=== PATIENT | female | born 1990 | race Caucasian/White ===

== ENCOUNTER → 2016-06-11 | Outpatient (CLI) | payer OTHER ==
[~2016-06-11] MED LIST: AMIT10TA6 PO; CEPH500C2 PO; LORA-741 PO; RIZA10TA18 SL; SERT-234 PO; SINCALIDE IV ONE; SODIUM CHLORIDE 0.9% IV ONE; ZNTT/150 PO
--- NOTE | 2016-06-11 13:01 | DIAGNOSTIC IMAGING REPORT ---
NUCLEAR MEDICINE HEPATOBILIARY SCAN WITH EJECTION FRACTION HISTORY: Pain. Nausea. ABD PAIN RUQ COMPARISON: None. TECHNIQUE: Immediately following the intravenous administration of 5.6 mCi Tc-99m Choletec, dynamic anterior abdominal imaging pre/post 2.68 mcg of Kinevac was performed. FINDINGS: Uniform hepatic tracer accumulation is shown. Prompt intrahepatic biliary excretion is seen. The gallbladder, common bile duct, and small bowel are all visualized by 20 minutes. This appearance represents the normal sequence of biliary excretion. The gallbladder ejection fraction following administration of Kinevac was 95 % (normal >35%). IMPRESSION: 1. No evidence for cystic duct obstruction. 2. Gallbladder ejection fraction calculated to be 95 %. Electronically signed by: Fran Browne M.D. 06/11/2016 1:00 PM Dictated Date/Time: 06/11/2016 12:59 PM
== END ==
LOC: C.NUCL 10:00
PROVIDERS: ATTEND Family Medicine
DX: R10.13 Epigastric pain (principal)

== ENCOUNTER → 2016-07-11 | Day surgery (SDC) | payer OTHER ==
[2016-07-10 10:16] VITALS: Ht 154.9 cm; Wt 136.4 kg
[~2016-07-11] VITALS: Ht 154.9 cm; Wt 136.4 kg
[~2016-07-11] MED LIST changes: +ATROPINE SULFATE 0.1 MG/ML 5ML SYR IV PRN; -CEPH500C2 PO; +EpHEDrine SULFATE INJ 50 MG/ML AMP IV PRN; +FENTANYL CITRATE INJ 50 MCG/1 ML 2 ML VIAL ONE; +LIDOCAINE HCL 2% 2 ML VIAL (20MG/ML) ONE; +MIDAZOLAM HCL 1 MG/ML 2ML VIAL ONE; +MoRPHine SULFATE 2 MG/ML CARP IV PRN; +ONDANSETRON INJ 2 MG/ML 2 ML VIAL IV STA; +ONDANSETRON INJ 2 MG/ML 2 ML VIAL ONE; +PROPOFOL IV EMULSION 10 MG/ML 20 ML VIAL IV ONE; -SINCALIDE IV ONE; -SODIUM CHLORIDE 0.9% IV ONE
--- NOTE | 2016-07-11 11:24 | Endo History and Physical ---
History & Physical Date of Service: Jul 11, 2016. Chief Complaint: Referring Physician: History of Present Illness 25 yo presenting for EGD for epigastric abdominal pain Past Medical History Anxiety, Reflux, Hypertension, Depression Past Surgical History Hx Cardiac Surgery: No Hx Internal Defibrillator: No Hx Pacemaker: No Hx Abdominal Surgery: No Hx Post-Op Nausea and Vomiting: No Hx Cancer Surgery: No Hx Thoracic Surgery: No Hx Orthopedic: No Hx Urinary Tract Surgery: No Family History None Social History Smoking Status: Never Smoker Hx Substance Use: No Hx Alcohol Use: No Allergies Coded Allergies: No Known Allergies (Verified , 07/11/16) Current Medications Reported Home Medications Medications Dose Route/Sig Max Daily Dose Days Date Category Zantac (Ranitidine HCl) 150 Mg Tab 150 Mg PO AFTERNOON 07/01/16 Reported Ativan (Lorazepam) 0.5 Mg Tab 0.5 Mg PO AFTERNOON 07/01/16 Reported Zoloft (Sertraline HCl) 100 Mg Tab 150 Mg PO AFTERNOON 09/14/15 Reported Vital Signs Weight (Kilograms): 136.36 Height (Feet): 5 Height (Inches): 1 Physical Exam General Appearance: WD/WN, no apparent distress Respiratory/Chest: Respiratory effort: no dyspnea Auscultation: breath sounds normal, CTA except as noted, no wheezing Cardiovascular: Apical Impulse: not displaced Heart Auscultation: RRR, normal S1, normal S2 Abdomen: Bowel Sounds: normal Inspection & Palpation: soft, non-distended Assessment and Plan 25 yo presenting for EGD for abdominal pain
--- NOTE | 2016-07-11 11:58 | GI REPORT ---
Procedure Date: 07/11/2016 11:25 AM Procedure: Upper GI endoscopy Indications: Epigastric abdominal pain, Nausea with vomiting Medicines: General Anesthesia Complications: No immediate complications. Estimated blood loss: None. Estimated Blood Loss: Estimated blood loss: none. Procedure: Pre-Anesthesia Assessment: - Pre-Anesthesia Assessment: - Prior to the procedure, a History and Physical was performed, and patient medications, allergies and sensitivities were reviewed. The patient's tolerance of previous anesthesia was reviewed. Please see Validroid for complete details. - The risks and benefits of the procedure and the sedation options and risks were discussed with the patient. All questions were answered and informed consent was obtained. - Patient identification and proposed procedure were verified prior to the procedure by the physician and the nurse. The procedure was verified in the pre-procedure area in the procedure room. After obtaining informed consent, the endoscope was passed carefully and meticuously under direct vision and only advanced when the lumen was clearly identified, C02 insuflation was utilized throughout the entirity of the procedure. Throughout the procedure, the patient's blood pressure, pulse, and oxygen saturations were monitored continuously. After obtaining informed consent, the endoscope was passed under direct vision. Throughout the procedure, the patient's blood pressure, pulse, and oxygen saturations were monitored continuously. The scope was introduced through the mouth, and advanced to the second part of duodenum. The upper GI endoscopy was accomplished without difficulty. The patient tolerated the procedure well. Findings: The examined esophagus was normal. A medium amount of food (residue) was found in the gastric body. No other significant abnormalities were identified in a careful examination of the stomach. Biopsies were taken with a cold forceps in the entire examined stomach for Helicobacter pylori testing. The examined duodenum was normal. Impression: - Normal esophagus. - A medium amount of food (residue) in the stomach. - Normal examined duodenum. - Biopsies were taken with a cold forceps for Helicobacter pylori testing. Recommendation: - Await pathology results. - Discharge patient to home (with escort). - Return to referring physician as previously scheduled. - Consider gastric emptying study Marquez Seals MD 07/11/2016 11:58:29 AM This report has been signed electronically. Note Initiated On: 07/11/2016 11:25 AM I attest to the content of the Intraoperative Record and orders documented therein, exceptions below
--- NOTE | 2016-07-11 12:01 | Discharge Instructions ---
Endoscopy Patient Instructions Date / Procedure(s) Performed Jul 11, 2016. EGD Allergy Information Coded Allergies: No Known Allergies (Verified , 07/11/16) Discharge Date / Findings Jul 11, 2016. Retained food in stomach Otherwise normal You may have a stomach that does not empty fast enough and may need further radiology testing Provider Instructions Activity Restrictions - No exercising or heavy lifting for 24 hours. - Do not drink alcohol the day of the procedure. - Do not drive a car or operate machinery until the day after the procedure. - Do not make any important decisions or sign important papers in 24 hours after the procedure. Following Day: - Return to full activity which may include returning to work/school. Diet Start your diet with liquids and light foods (jello, soup, juice, toast). Then eat your usual diet if not nauseated. Treatment For Common After Affects For mild abdominal pain, bloating, or excessive gas: - Rest - Eat lightly - Lie on right side Follow-Up Information Follow-up with Dr. Richi Franco as scheduled Anesthesia Information What You Should Know You have had a procedure that required some medicine to reduce anxiety and discomfort. This treatment is called moderate sedation. After receiving the treatment, you may be sleepy, but you will be able to breathe on your own. The effects of the treatment may last for several hours. Follow these instructions along with Activity/Diet recommendations noted above: * Do NOT do anything where dizziness or clumsiness would be dangerous. * Rest quietly at home today, then you can be up and about tomorrow. * Have a responsible person stay with you the rest of today. * You may have had an I.V. today. If so, you may take the dressing off later today. Recommendations Call your doctor if: * Trouble breathing * Continuous vomiting for more than 24 hours * Temperature above 101 degrees * Severe abdominal pain or bloating * Pain not relieved by pain medicine ordered * There is increased drainage or redness from any incision * A large amount of rectal bleeding greater than 2-3 tablespoons. (If you had a polyp/s removed or have hemorrhoids, a small amount of blood - from the rectum is to be expected.) * You have any unanswered questions or concerns. IN THE EVENT OF A SERIOUS EMERGENCY, GO TO THE NEAREST EMERGENCY ROOM Your discharge instructions were prepared by provider Marquez Seals. Patient Instructions Signature Page Misty Gtz Patient (or Guardian) Signature/Date: I have read and understand the instructions given to me by my caregivers. Caregiver/RN/Doctor Signature/Date: The above-named patient and/or guardian has received patient instructions on this date. + Original Patient Signature Page (only) stays with chart. Please make copy for patient.
--- NOTE | 2016-07-11 13:31 | DIAGNOSTIC IMAGING REPORT ---
PA CHEST RADIOGRAPH AND UPRIGHT AND SUPINE AP RADIOGRAPHS OF THE ABDOMEN CLINICAL HISTORY: Left upper quadrant pain after EGD with biopsy. COMPARISON STUDY: Chest radiograph December 08, [address] of the abdomen and pelvis May 31, 2014. FINDINGS: Lung volumes are normal. Lungs are clear. There is no pneumothorax or pleural effusion. Cardiac size is normal. Mediastinal contours are normal. There is no free air. Bowel gas pattern is normal. Pelvic calcifications represent phleboliths. IMPRESSION: 1. No free air or evidence of bowel obstruction. 2. No acute cardiopulmonary findings. Electronically signed by: Suresh Glasgow M.D. 07/11/2016 1:30 PM Dictated Date/Time: 07/11/2016 1:28 PM
[2016-07-11] MEDS: FENTANYL CITRATE INJ 50 MCG/1 ML 2 ML VIAL IV PRN ×2 (13:38→13:49)
--- NOTE | 2016-07-11 14:08 | Anesthesiology Progress Note ---
Anesthesia Post Op Note Date & Time Jul 11, 2016 at 14:07 Vital Signs Pain Intensity: 5 Vital Signs Past 12 Hours Date Time Temp Pulse Resp B/P Pulse Ox O2 Delivery O2 Flow Rate FiO2 07/11/16 14:00 99 20 118/47 98 Room Air 07/11/16 13:46 108 20 131/98 95 Room Air 07/11/16 13:31 92 18 130/88 97 Room Air 07/11/16 12:31 95 18 134/96 99 Room Air 07/11/16 12:14 104 18 134/91 100 Room Air 07/11/16 11:59 89 18 117/74 95 Room Air 07/11/16 11:31 37.2 94 18 143/99 94 Room Air Notes Mental Status: alert / awake / arousable, participated in evaluation Pt Amnestic to Procedure: Yes Nausea / Vomiting: adequately controlled Pain: adequately controlled Airway Patency, RR, SpO2: stable & adequate BP & HR: stable & adequate Hydration State: stable & adequate Anesthetic Complications: no major complications apparent
[2016-07-11 14:40] VITALS: BP 122/64; PULSE 98; O2SAT 99
== END | disposition home or self-care (01) ==
LOC: C.GI 11:05
PROVIDERS: ATTEND Internal Medicine
DX: R10.13 Epigastric pain (principal); R11.2 Nausea with vomiting, unspecified; I10 Essential (primary) hypertension; F41.9 Anxiety disorder, unspecified; F32.9 Major depressive disorder, single episode, unspecified; J45.909 Unspecified asthma, uncomplicated; E66.01 Morbid (severe) obesity due to excess calories; G47.33 Obstructive sleep apnea (adult) (pediatric); Z68.43 Body mass index [BMI] 50.0-59.9, adult; Z90.89 Acquired absence of other organs

== ENCOUNTER 2016-07-18 01:53 | Emergency (ER) | payer OTHER ==
[~2016-07-18] VITALS: Ht 154.9 cm; Wt 134.3 kg
[~2016-07-18 01:53] MED LIST changes: -AMIT10TA6 PO; -ATROPINE SULFATE 0.1 MG/ML 5ML SYR IV PRN; -EpHEDrine SULFATE INJ 50 MG/ML AMP IV PRN; -FENTANYL CITRATE INJ 50 MCG/1 ML 2 ML VIAL ONE; -LIDOCAINE HCL 2% 2 ML VIAL (20MG/ML) ONE; -MIDAZOLAM HCL 1 MG/ML 2ML VIAL ONE; -MoRPHine SULFATE 2 MG/ML CARP IV PRN; -ONDANSETRON INJ 2 MG/ML 2 ML VIAL IV STA; -ONDANSETRON INJ 2 MG/ML 2 ML VIAL ONE; -PROPOFOL IV EMULSION 10 MG/ML 20 ML VIAL IV ONE; -RIZA10TA18 SL
[2016-07-18 01:57] VITALS: Ht 154.9 cm; Wt 134.3 kg
[2016-07-18] MEDS ORDERED: ONDANSETRON INJ 2 MG/ML 2 ML VIAL IV STA (02:24)
[2016-07-18] MEDS ORDERED: SODIUM CHLORIDE 0.9% 1000ML 1,000 ML IV STA (02:24)
[2016-07-18] MEDS ORDERED: HYDROmorphone INJ 1 MG/ML SYR IV STA ×2 (02:24→04:50)
[2016-07-18 02:54] LABS: BASO % 0.2 %; BASO ABS # 0.02 K/uL (0-0.2); COMPLETE YES; EOS % 1.8 %; HEMATOCRIT 44.2 % (37-47); IG% 0.1 %; LYMPH % 29.7 %; LYMPH ABS # 2.63 K/uL (1.2-3.4); MEAN CELL VOLUME 89.5 fL (80-100); MEAN CORPUSCULAR HEMOGLOBIN 30.4 pg (25-34); MEAN CORPUSCULAR HGB CONC 33.9 g/dl (32-36); MEAN PLATELET VOLUME 8.7 fL (7.4-10.4); MONO % 5.4 %; NEUT % 62.8 %; PLATELET COUNT 306 K/uL (130-400); RED BLOOD COUNT 4.94 M/uL (4.2-5.4); WHITE BLOOD COUNT 8.85 K/uL (4.8-10.8)
[2016-07-18 03:02] LABS: URINE APPEARANCE CLEAR (CLEAR); URINE BILIRUBIN NEG (NEG); URINE COLOR YELLOW; URINE EPITHELIAL CELL AUTO >30 /lpf (0-5); URINE NITRITE NEG (NEG); URINE SPECIFIC GRAVITY 1.027 (1.000-1.030); UROBILINOGEN NEG (NEG); ZZUR CULT IF INDIC CLEAN CATCH YES
[2016-07-18 03:04] LABS: MANUAL MICROSCOPIC REQUIRED? NO; REVIEW REQ? YES
[2016-07-18 03:17] LABS: BUN/CREATININE RATIO 13.6 (10-20); POTASSIUM 3.7 mmol/L (3.5-5.1)
[2016-07-18] MEDS ORDERED: OPTIRAY 320 IV PRN (03:30)
--- NOTE | 2016-07-18 03:56 | EMERGENCY ROOM VISIT NOTE ---
History First contact with patient: 02:02 Chief Complaint: ABDOMINAL PAIN Stated Complaint: SEVERE STOMACH PAIN,FROM LT TO CENTER TO BACK,NAUS Nursing Triage Summary: see triage note History of Present Illness The patient is a 25 year old female who presents to the Emergency Room with complaints of severe upper abdominal pain. The patient states that she has had "stomach problems" for the past 3 months. She states these have been gradually worsening. She states that she has had occasional upper abdominal pain with nausea and difficulty eating. She has had a HIDA scan which was negative. Most recently, she had an EGD performed by Dr. Seals approximately one week ago. The patient states that she has had worsening pain since the endoscopy. The pain is located in the middle of her abdomen and radiates into the left side and into the back. She rates the discomfort a 9/10. She reports associated nausea. She denies any vomiting, changes in bowel movements, urinary symptoms, fevers or chills. The patient has been taking Zantac for her symptoms. Review of Systems A complete 10 point review of systems was reviewed with the patient with pertinent positives and negatives as per history of present illness. All else were negative. Past Medical/Surgical History Medical Problems: (1) Depression (2) H/O gastroesophageal reflux (GERD) Surgical Problems: (1) S/P tonsillectomy Family History Cancer Heart disease Social History Smoking Status: Never Smoker Alcohol Use: none Drug Use: none Marital Status: single Housing Status: lives with family Occupation Status: disabled Current/Historical Medications Scheduled Lorazepam (Ativan), 0.5 MG PO AFTERNOON Ranitidine (Zantac), 150 MG PO AFTERNOON Sertraline (Zoloft), 150 MG PO AFTERNOON Allergies Coded Allergies: Diphenhydramine (Verified Adverse Reaction, Unknown, anxiety, 07/18/16) only IV benadryl. pt is able to take pill form Physical Exam Vital Signs Date Time Temp Pulse Resp B/P Pulse Ox O2 Delivery O2 Flow Rate FiO2 07/18/16 04:04 89 16 137/101 99 Room Air 07/18/16 01:57 36.4 108 24 158/115 99 Room Air Pain Rating (0-10): 8.0 Physical Exam VITALS: Vitals are noted on the nurse's note and reviewed by myself. Vital signs stable. GENERAL: This is a 25-year-old female, in no acute distress, nondiaphoretic, well-developed well-nourished. HEENT: Normocephalic. PERRLA. EOMI. Nares patent. Mucous membranes moist. Neck is supple without nuchal rigidity. HEART: Regular rate and rhythm without murmurs gallops or rubs. LUNGS: Clear to auscultation bilaterally without wheezes, rales or rhonchi. ABDOMEN: Positive bowel sounds x 4. Soft, diffuse tenderness with exaggerated pain response on palpation. No rebound tenderness. NEURO: Patient was alert and oriented to person place and time. Medical Decision & Procedures ER Provider Diagnostic Interpretation: CT ABDOMEN & PELVIS: No bowel obstruction. No appendicitis or other inflammatory changes of bowel. Pancreas and gallbladder are grossly unremarkable. Fatty liver. No renal calculi. No hydronephrosis. No free air or free fluid. No other acute disease. Radiologist: Fernando Perez MD Laboratory Results 07/18/16 02:46 Red Blood Count 4.94, Mean Corpuscular Volume 89.5, Mean Corpuscular Hemoglobin 30.4, Mean Corpuscular Hemoglobin Concent 33.9, Mean Platelet Volume 8.7, Neutrophils (%) (Auto) 62.8, Lymphocytes (%) (Auto) 29.7, Monocytes (%) (Auto) 5.4, Eosinophils (%) (Auto) 1.8, Basophils (%) (Auto) 0.2, Neutrophils # (Auto) 5.55, Lymphocytes # (Auto) 2.63, Monocytes # (Auto) 0.48, Eosinophils # (Auto) 0.16, Basophils # (Auto) 0.02 07/18/16 02:46 Test 07/18/16 02:24 07/18/16 02:45 07/18/16 02:46 Urine Test NEG (NEG) Urine Color YELLOW Urine Appearance CLEAR (CLEAR) Urine pH 7.0 (4.5-7.5) Urine Specific [place] 1.027 (1.000-1.030) Urine Protein NEG (NEG) Urine Glucose (UA) NEG (NEG) Urine Ketones TRACE (NEG) Urine Occult Blood 2+ (NEG) Urine Nitrite NEG (NEG) Urine Bilirubin NEG (NEG) Urine Urobilinogen NEG (NEG) Urine Leukocyte Esterase MODERATE (NEG) Urine WBC (Auto) 5-10 /hpf (0-5) Urine RBC (Auto) 10-30 /hpf (0-4) Urine Hyaline Casts (Auto) 1-5 /lpf (0-5) Urine Epithelial Cells (Auto) >30 /lpf (0-5) Urine Bacteria (Auto) NEG (NEG) Urine Yeast (Auto) (NONE PRSENT) White Blood Count 8.85 K/uL (4.8-10.8) Red Blood Count 4.94 M/uL (4.2-5.4) Hemoglobin 15.0 g/dL (12.0-16.0) Hematocrit 44.2 % (37-47) Mean Corpuscular Volume 89.5 fL (80-100) Mean Corpuscular Hemoglobin 30.4 pg (25-34) Mean Corpuscular Hemoglobin Concent 33.9 g/dl (32-36) Platelet Count 306 K/uL (130-400) Mean Platelet Volume 8.7 fL (7.4-10.4) Neutrophils (%) (Auto) 62.8 % Lymphocytes (%) (Auto) 29.7 % Monocytes (%) (Auto) 5.4 % Eosinophils (%) (Auto) 1.8 % Basophils (%) (Auto) 0.2 % Neutrophils # (Auto) 5.55 K/uL (1.4-6.5) Lymphocytes # (Auto) 2.63 K/uL (1.2-3.4) Monocytes # (Auto) 0.48 K/uL (0.11-0.59) Eosinophils # (Auto) 0.16 K/uL (0-0.5) Basophils # (Auto) 0.02 K/uL (0-0.2) RDW Standard Deviation 45.3 fL (36.4-46.3) RDW Coefficient of Variation 13.8 % (11.5-14.5) Immature Granulocyte % (Auto) 0.1 % Immature Granulocyte # (Auto) 0.01 K/uL (0.00-0.02) Anion Gap 6.0 mmol/L (3-11) Est Creatinine Clear Calc Drug Dose 111.8 ml/min Estimated GFR () 90.7 Estimated GFR (Non- 78.2 BUN/Creatinine Ratio 13.6 (10-20) Calcium Level 9.0 mg/dl (8.5-10.1) Total Bilirubin 0.3 mg/dl (0.2-1) Aspartate Amino Transf (AST/SGOT) 13 U/L (15-37) Alanine Aminotransferase (ALT/SGPT) 37 U/L (12-78) Alkaline Phosphatase 90 U/L (45-117) Total Protein 7.5 gm/dl (6.4-8.2) Albumin 3.8 gm/dl (3.4-5.0) Globulin 3.7 gm/dl (2.5-4.0) Albumin/Globulin Ratio 1.0 (0.9-2) Lipase 175 U/L (73-393) Medications Administered Medications (Trade) Dose Ordered Sig/Morelia Route Start Time Stop Time Status Last Admin Dose Admin Sodium Chloride (Nss 1000ml) 1,000 ml @ 999 mls/hr Q1H1M STAT IV 07/18/16 02:24 07/18/16 03:24 DC 07/18/16 02:45 999 MLS/HR Hydromorphone HCl (Dilaudid Inj) 1 mg NOW STAT IV 07/18/16 02:24 07/18/16 02:26 DC 07/18/16 02:44 1 MG Ondansetron HCl (Zofran Inj) 4 mg NOW STAT IV 07/18/16 02:24 07/18/16 02:26 DC 07/18/16 02:43 4 MG ED Course The patient was evaluated as above. Labs were drawn and IV access was obtained. Patient was medicated with 1 mg Dilaudid IV and [address] of the abdomen and pelvis was performed and read by radiology as above. Patient was reevaluated and had continued pain. She was given 1 mg Dilaudid IV. Findings were discussed. Discharge instructions were reviewed with the patient. The patient verbalized understanding of my assessment and treatment plan and was discharged home in good condition. Medical Decision Differential diagnosis includes perforated viscus, cholecystitis, pancreatitis, gastroenteritis, colitis, bowel obstruction, among others. The patient is a 25-year-old female who presents today complaining of abdominal pain. Labs revealed no leukocytosis, anemia or concerning electrolyte abnormalities. LFTs were within normal limits. Lipase was within normal limits. Urinalysis was not suggestive of infection. Urine was negative. Abdominal series was initially performed and reviewed by myself and my attending with no free air or evidence of bowel obstruction. Patient had continued significant pain and CT scan was ordered. This was read by stat rad with no acute abnormalities. The patient was treated with a total of 2 mg IV Dilaudid. She was instructed to follow-up with her director of group sales. The patient's case was reviewed with Dr. Mclean, ED attending physician, who agreed with my assessment and treatment plan. Based on the patient's presentation and work up, I feel the patient is stable for outpatient treatment. The patient was educated to return to the emergency department for any worsening of their current condition or new/concerning symptoms. She will follow up with her director of group sales and PCP. Impression Primary Impression: Epigastric abdominal pain Departure Information Dispostion Home / Self-Care Condition GOOD Referrals Richi Franco M.D. (PCP) Patient Instructions My [facility] Additional Instructions Follow-up with gastroenterology. Call today for appointment. You should start taking Prilosec, 40 mg daily along with your Zantac. Return to the emergency department with any new/concerning symptoms.
--- NOTE | 2016-07-18 04:24 | EMERGENCY ROOM VISIT NOTE ---
ED Visit Note First contact with patient: 02:02 I have personally evaluated and examined this patient. I agree with assessment and plan of Daniella Suazo PA-C. Vague left sided abdominal pain post coloscopy.
[2016-07-18 05:15] VITALS: BP 145/90; PULSE 89; TEMP 36.4; O2SAT 99
--- NOTE | 2016-07-18 06:52 | DIAGNOSTIC IMAGING REPORT ---
PA CHEST RADIOGRAPH AND UPRIGHT AND SUPINE AP RADIOGRAPHS OF THE ABDOMEN CLINICAL HISTORY: Abdominal pain after endoscopy. COMPARISON STUDY: Abdominal series and chest radiograph July 11, 2016. FINDINGS: Lung volumes are normal. There is no pneumothorax or pleural effusion. Cardiac size is normal. Mediastinal contours are normal. There is no evidence of pulmonary edema. There is no free air. The bowel gas pattern is normal. Pelvic calcifications reflect phleboliths. IMPRESSION: 1. No free air or evidence of bowel obstruction. 2. No acute cardiopulmonary findings. Electronically signed by: Suresh Glasgow M.D. 07/18/2016 6:50 AM Dictated Date/Time: 07/18/2016 6:49 AM
--- NOTE | 2016-07-18 06:55 | DIAGNOSTIC IMAGING REPORT ---
CT OF THE ABDOMEN AND PELVIS WITH CONTRAST CLINICAL HISTORY: Epigastric/LUQ abdominal pain, recent EGD COMPARISON STUDY: CT of the abdomen and pelvis March 02, 2015 and abdominal series performed earlier today. TECHNIQUE: Following IV administration of 100 mL of Optiray-320, axial images of the abdomen and pelvis were obtained from the lung bases to the proximal femurs. Images were reviewed in the axial, sagittal, and coronal planes. IV contrast was administered without complication. CT DOSE: 2172.41 mGy.cm FINDINGS: Lung bases are clear. No free air, pneumatosis or portal venous gas is present. Fatty infiltration of the liver is noted. The spleen, adrenal glands, kidneys and pancreas are normal. There is no peripancreatic or pericholecystic infiltration. There is no biliary or pancreatic ductal dilatation. There is no hydronephrosis. A splenule is present. The caliber and wall thickness of small and large bowel are normal. The appendix is normal. There is no free fluid. Skeletal structures are unremarkable. IMPRESSION: 1. No acute process within the abdomen or pelvis. No pneumoperitoneum. 2. Fatty liver. Electronically signed by: Suresh Glasgow M.D. 07/18/2016 6:54 AM Dictated Date/Time: 07/18/2016 6:50 AM
[2016-10-15] MEDS ORDERED: AMIT10TA6 PO (15:23)
[2016-10-15] MEDS ORDERED: RIZA10TA18 SL (15:23)
== END 2016-07-18 05:16 | disposition home or self-care (01) ==
LOC: C.EDB 01:56
DX: R10.13 Epigastric pain (principal); F32.9 Major depressive disorder, single episode, unspecified; K21.9 Gastro-esophageal reflux disease without esophagitis; Z98.890 Other specified postprocedural states; Z79.899 Other long term (current) drug therapy; Z88.8 Allergy status to other drugs, medicaments and biological substances; Z80.9 Family history of malignant neoplasm, unspecified; Z82.49 Family history of ischemic heart disease and other diseases of the circulatory system

== ENCOUNTER 2016-11-22 06:56 | Day surgery (SDC) | payer OTHER ==
[2016-10-15 14:34] VITALS: BMI 57.0
[2016-10-15 15:09] VITALS: BMI 57.0
[~2016-11-22] VITALS: Ht 154.9 cm; Wt 136.4 kg
[~2016-11-22 06:56] MED LIST changes: +AMIT10TA6 PO; +LACTATED RINGER'S 1000ML 1,000 ML IV SCH; +RIZA10TA18 SL
[2016-11-22] MEDS ORDERED: FENTANYL CITRATE INJ 50 MCG/1 ML 2 ML VIAL IV PRN (07:00)
[2016-11-22] MEDS ORDERED: EpHEDrine SULFATE INJ 50 MG/ML AMP IV PRN (07:00)
[2016-11-22] MEDS ORDERED: ATROPINE SULFATE 0.1 MG/ML 5ML SYR IV PRN (07:00)
[2016-11-22] MEDS ORDERED: ONDANSETRON INJ 2 MG/ML 2 ML VIAL IV PRN (07:00)
[2016-11-22] MEDS ORDERED: HYDROmorphone INJ 1 MG/ML SYR IV PRN (07:00)
[2016-11-22] MEDS ORDERED: FENTANYL CITRATE INJ 50 MCG/1 ML 2 ML VIAL ONE (07:01)
[2016-11-22] MEDS ORDERED: MIDAZOLAM HCL 1 MG/ML 2ML VIAL ONE (07:01)
[2016-11-22 07:20] VITALS: BP 130/85; PULSE 115; TEMP 36.9; O2SAT 97; Ht 154.9 cm; Wt 136.4 kg
[2016-11-22] MEDS ORDERED: SODIUM CHLORIDE 0.9% 500ML 500 ML IV ONE (08:08)
--- NOTE | 2016-11-22 08:08 | Progress Note ---
Progress Note Date of Service Nov 22, 2016. Progress Note [facility] [address] [place] [address] Endoscopy History & Physical Patient Name: Misty Macdonald Unit Number: [id number] Date of : 1990 Patient Status: Registered Surgical Day Care Attending Doctor: Marquez Seals MD History & Physical - GI History & Physical Date of Service: Nov 22, 2016. Chief Complaint: Referring Physician: History of Present Illness Misty Macdonald is a 26 year old female, who has had symptoms of RUQ, epigastric abd pain for months, associated w nausea, poor appetite, diarrhea symptoms. Abd pain worse postprandially, especially w food containing spicy, ketchup. She had previous GI workup including: EGD in 2011 and 2016. Normal exams in 2011 but recent one showed mod amt of food and bx w chronic gastritis w /o Hpylori. Had abd u/s which due to body habitus was a limited exam but showed fatty liver, partially distended gallbladder w/o stones, sludge, CBD 6.7mm. HIDA scan w/o signs of cystic duct obstruction, normal otherwise. She went to see Dr. Masterson for possible cholecystectomy, was told due to body habitus would likely be an open procedure. She was referred back to GI clinic for further testing but she's not sure what. Regarding her diarrhea, she has up to 3-4x watery stools a day, intermittent hematochezia but she said likely hemorrhoidal Past Medical History Anxiety, Reflux, Hypertension, Depression Past Surgical History Hx Cardiac Surgery: No Hx Internal Defibrillator: No Hx Pacemaker: No Hx Abdominal Surgery: No Hx Post-Op Nausea and Vomiting: No Hx Cancer Surgery: No Hx Thoracic Surgery: No Hx Orthopedic: No Hx Urinary Tract Surgery: No Social History Smoking Status: Never Smoker Hx Substance Use: No Hx Alcohol Use: No Allergies Coded Allergies: No Known Allergies (Unverified , 11/22/16) Current Medications Reported Home Medications Medications Dose Route/Sig Max Daily Dose Days Date Category Elavil (Amitriptyline Hcl) 10 Mg Tab 1 Tab PO HS 30 10/15/16 Reported Maxalt (Rizatriptan Benzoate) 10 Mg Tab 10 Mg SL DIRECTED PRN 10/15/16 Reported Zantac (Ranitidine HCl) 150 Mg Tab 150 Mg PO AFTERNOON 07/01/16 Reported Ativan (Lorazepam) 0.5 Mg Tab 0.5 Mg PO AFTERNOON 07/01/16 Reported Zoloft (Sertraline HCl) 100 Mg Tab 150 Mg PO AFTERNOON 09/14/15 Reported Vital Signs Weight (Kilograms): 136.36 Height (Feet): 5 Height (Inches): 1 Physical Exam General Appearance: WD/WN, no apparent distress Respiratory/Chest: Auscultation: breath sounds normal, CTA except as noted Cardiovascular: Apical Impulse: not displaced Heart Auscultation: RRR, normal S1, normal S2 Assessment and Plan 26 yo with a hx of N/V and abdominal pain presenting for EGD/EUS
--- NOTE | 2016-11-22 08:49 | Discharge Instructions ---
Endoscopy Patient Instructions Date / Procedure(s) Performed Nov 22, 2016. Other (Endoscopic Ultrasound) Allergy Information Coded Allergies: No Known Allergies (Unverified , 11/22/16) Discharge Date / Findings Nov 22, 2016. Normal pancreas and liver Sludge in gallbladder Food in stomach otherwise normal exam Provider Instructions Activity Restrictions - No exercising or heavy lifting for 24 hours. - Do not drink alcohol the day of the procedure. - Do not drive a car or operate machinery until the day after the procedure. - Do not make any important decisions or sign important papers in 24 hours after the procedure. Following Day: - Return to full activity which may include returning to work/school. Diet Start your diet with liquids and light foods (jello, soup, juice, toast). Then eat your usual diet if not nauseated. Treatment For Common After Affects For mild abdominal pain, bloating, or excessive gas: - Rest - Eat lightly - Lie on right side Follow-Up Information Follow-up with as scheduled Anesthesia Information What You Should Know You have had a procedure that required some medicine to reduce anxiety and discomfort. This treatment is called moderate sedation. After receiving the treatment, you may be sleepy, but you will be able to breathe on your own. The effects of the treatment may last for several hours. Follow these instructions along with Activity/Diet recommendations noted above: * Do NOT do anything where dizziness or clumsiness would be dangerous. * Rest quietly at home today, then you can be up and about tomorrow. * Have a responsible person stay with you the rest of today. * You may have had an I.V. today. If so, you may take the dressing off later today. Recommendations Call your doctor if: * Trouble breathing * Continuous vomiting for more than 24 hours * Temperature above 101 degrees * Severe abdominal pain or bloating * Pain not relieved by pain medicine ordered * There is increased drainage or redness from any incision * A large amount of rectal bleeding greater than 2-3 tablespoons. (If you had a polyp/s removed or have hemorrhoids, a small amount of blood - from the rectum is to be expected.) * You have any unanswered questions or concerns. IN THE EVENT OF A SERIOUS EMERGENCY, GO TO THE NEAREST EMERGENCY ROOM Your discharge instructions were prepared by provider Marquez Seals. Patient Instructions Signature Page Misty Gtz Patient (or Guardian) Signature/Date: I have read and understand the instructions given to me by my caregivers. Caregiver/RN/Doctor Signature/Date: The above-named patient and/or guardian has received patient instructions on this date. + Original Patient Signature Page (only) stays with chart. Please make copy for patient.
--- NOTE | 2016-11-22 08:57 | GI REPORT ---
Procedure Date: 11/22/2016 8:10 AM Procedure: Upper EUS Indications: Epigastric abdominal pain Medicines: General Anesthesia Complications: No immediate complications. Estimated blood loss: None. Estimated Blood Loss: Estimated blood loss: none. Procedure: Pre-Anesthesia Assessment: - Pre-Anesthesia Assessment: - Prior to the procedure, a History and Physical was performed, and patient medications, allergies and sensitivities were reviewed. The patient's tolerance of previous anesthesia was reviewed. Please see [email or web address] for complete details. - The risks and benefits of the procedure and the sedation options and risks were discussed with the patient. All questions were answered and informed consent was obtained. - Patient identification and proposed procedure were verified prior to the procedure by the physician and the nurse. The procedure was verified in the pre-procedure area in the procedure room. After obtaining informed consent, the endoscope was passed carefully and meticuously under direct vision and only advanced when the lumen was clearly identified, C02 insuflation was utilized throughout the entirity of the procedure. Throughout the procedure, the patient's blood pressure, pulse, and oxygen saturations were monitored continuously. After obtaining informed consent, the endoscope was passed under direct vision. Throughout the procedure, the patient's blood pressure, pulse, and oxygen saturations were monitored continuously. The Endosonoscope was introduced through the mouth, and advanced to the second part of duodenum. The upper EUS was accomplished without difficulty. The patient tolerated the procedure well. Findings: Endosonographic Finding : Pancreatic parenchymal abnormalities were noted in the entire pancreas. These consisted of diffuse echogenicity. Endosonographic imaging in the entire pancreas showed no chronic pancreatitis, no cyst/pseudocyst, no mass, no pancreas divisum and no pancreatic duct changes. No lymphadenopathy seen. There was diffuse abnormal echotexture in the entire examined liver. This was characterized by a hyperechoic appearance. There was no sign of significant endosonographic abnormality involving the celiac trunk. There was no sign of significant endosonographic abnormality in the common bile duct. The maximum diameter of the duct was 5 mm. Moderate hyperechoic material consistent with sludge was visualized endosonographically in the gallbladder body. Impression: - Pancreatic parenchymal abnormalities consisting of diffuse echogenicity were noted in the entire pancreas. - There was diffuse abnormal echotexture in the entire examined liver. This was characterized by a hyperechoic appearance. - The celiac trunk was endosonographically normal. - There was no sign of significant pathology in the common bile duct. - Hyperechoic material consistent with sludge was visualized endosonographically in the gallbladder body. - No specimens collected. Recommendation: - Discharge patient to home (with escort). - Return to referring physician as previously scheduled. - Gastroparesis diet. - Anxiety is likely contributor, so aggressive treatment should be sought - Surgical follow up per Dr. Aleja Seals MD 11/22/2016 8:57:26 AM This report has been signed electronically. Note Initiated On: 11/22/2016 8:10 AM I attest to the content of the Intraoperative Record and orders documented therein, exceptions below
[2016-11-22] MEDS ORDERED: ONDANSETRON INJ 2 MG/ML 2 ML VIAL ONE (09:03)
[2016-11-22] MEDS ORDERED: PROPOFOL IV EMULSION 10 MG/ML 20 ML VIAL IV ONE (09:03)
[2016-11-22] MEDS ORDERED: LIDOCAINE HCL 2% 2 ML VIAL (20MG/ML) ONE (09:03)
[2016-11-22] MEDS ORDERED: DEXAMETHASONE SOD INJ 4 MG/ML VIAL ONE (09:03)
--- NOTE | 2016-11-22 09:33 | Anesthesiology Progress Note ---
Anesthesia Post Op Note Date & Time Nov 22, 2016 at 09:33 Vital Signs Pain Intensity: 0 Vital Signs Past 12 Hours Date Time Temp Pulse Resp B/P (MAP) Pulse Ox O2 Delivery O2 Flow Rate FiO2 11/22/16 09:29 36.2 113 20 148/88 96 Room Air 11/22/16 09:20 110 20 134/96 96 Room Air 11/22/16 09:10 114 16 125/93 98 Room Air 11/22/16 09:00 111 16 132/90 97 Oxymask 10 11/22/16 08:50 36.4 111 16 151/89 96 Oxymask 10 11/22/16 07:20 36.9 115 20 130/85 (100) 97 Room Air Notes Mental Status: alert / awake / arousable, participated in evaluation Pt Amnestic to Procedure: Yes Nausea / Vomiting: adequately controlled, improving with treatment Pain: adequately controlled Airway Patency, RR, SpO2: stable & adequate BP & HR: stable & adequate Hydration State: stable & adequate Anesthetic Complications: no major complications apparent
[2016-11-22 09:35] VITALS: BP 142/98; PULSE 102; TEMP 36.6; O2SAT 97
[2016-11-22 10:05] VITALS: BP 135/89; PULSE 103; TEMP 36.6; O2SAT 94
[2016-11-22 10:28] VITALS: BP 140/101; PULSE 98; O2SAT 95
== END 2016-11-22 10:45 | disposition home or self-care (01) ==
LOC: C.ACU 06:56
PROVIDERS: ATTEND Internal Medicine
DX: R10.13 Epigastric pain (principal); K86.89 Other specified diseases of pancreas; K76.89 Other specified diseases of liver; K82.8 Other specified diseases of gallbladder